=== PATIENT | female | born 1990 | race Caucasian/White ===

== ENCOUNTER 2020-02-06 14:14 | Emergency (ER) | payer BC, MEDICAID ==
[~2020-02-06] VITALS: Ht 162.6 cm; Wt 68.2 kg
[2020-02-06 14:19] VITALS: BP 123/69
== END 2020-02-06 15:44 | disposition home or self-care (01) ==
LOC: EMS 14:14
DX: U07.1 COVID-19 (principal)
CPT/HCPCS: 99283; U0003

== ENCOUNTER 2020-02-14 17:58 | Emergency (ER) | payer BC ==
[~2020-02-14] VITALS: Ht 162.6 cm; Wt 61.4 kg
[2020-02-14 19:29] VITALS: BP 116/68
== END 2020-02-14 21:01 | disposition home or self-care (01) ==
LOC: EMS 17:58
DX: U07.1 COVID-19 (principal); R06.02 Shortness of breath; M79.10 Myalgia, unspecified site
CPT/HCPCS: 71045-TC

== ENCOUNTER 2020-12-12 13:47 | Emergency (ER) | payer MEDICAID, OTHER, SELFPAY ==
[~2020-12-12] VITALS: Ht 160 cm; Wt 59.1 kg
[2020-12-12 13:48] VITALS: BP 146/68
== END 2020-12-12 16:00 | disposition home or self-care (01) ==
LOC: EMS 13:51
DX: H60.11 Cellulitis of right external ear (principal)
CPT/HCPCS: 99283

== ENCOUNTER 2021-02-22 12:05 | Emergency (ER) | payer OTHER ==
[~2021-02-22] VITALS: Ht 160 cm; Wt 61.4 kg
[2021-02-22 12:30] VITALS: BP 136/88
[2021-02-22] MEDS ORDERED: HYDROGEN PEROXIDE 118 ML SOLUTION TP ONE (15:15)
[2021-02-22] MEDS ORDERED: CEPHALEXIN MONOHYDRATE 500 MG CAPSULE PO ONE (15:30)
== END 2021-02-22 17:02 | disposition home or self-care (01) ==
LOC: EMS 12:09
DX: H60.12 Cellulitis of left external ear (principal)
CPT/HCPCS: 99283

== ENCOUNTER 2022-06-29 17:32 | Emergency (ER) | payer OTHER ==
[~2022-06-29] VITALS: Ht 160 cm; Wt 59.1 kg
[2022-06-29 18:35] VITALS: BP 100/68
[2022-06-29] MEDS ORDERED: NEOMYCIN/POLYMYXIN B/HYDROCORT 10 ML OTIC SUSPENSION AD ONE (21:00)
== END 2022-06-29 19:52 | disposition home or self-care (01) ==
LOC: EMS 17:33
DX: H66.93 Otitis media, unspecified, bilateral (principal)
CPT/HCPCS: 99281; Z7502; Z7610